=== PATIENT | female | born 1935 | race Caucasian/White ===

== ENCOUNTER → 2017-03-11 | Outpatient (CLI) | payer MEDICARE, BC ==
[2015-04-04 13:15] VITALS: BP 126/69
[~2017-03-11] MED LIST: ACETAMINOPHEN325 M1 PO; ANTIBIOTIC O500 U/GM TP; ATENOLOL; BACTRIM DS TAB1 EACH PO; CETAPHIL COMPO480 ML TOP; CIPRO 500MG TA500 MG PO; DELSYM30 MG/5 M1 PO; ESCITALOPRAM10 MG PO; EXELON PAT4.6 MG/24 TD; EXELON13.3 MG/24 TD; EXELON9.5 MG/21 TD; FOSAMAX 70MG TA70 MG PO; GAVISCON500 MG PO; IBU400 MG PO; NAMENDA10 MG PO; NATURAL E400 IU PO; PEPCID 20MG TAB20 MG PO; PROZAC10 M2 PO; RITE AID ASPIRI81 M1 PO; TENORMIN25 MG PO; XANAX0.5 M1 PO; ZOFRAN ODT8 MG PO
== END ==
LOC: LAB 13:44
DX: R73.02 Impaired glucose tolerance (oral) (principal); I10 Essential (primary) hypertension; K90.89 Other intestinal malabsorption

== ENCOUNTER 2017-03-29 10:14 | Emergency (ER) | payer MEDICARE, BC ==
[~2017-03-29 10:14] MED LIST changes: -ACETAMINOPHEN325 M1 PO; -BACTRIM DS TAB1 EACH PO; -CETAPHIL COMPO480 ML TOP; -DELSYM30 MG/5 M1 PO; -ESCITALOPRAM10 MG PO; -EXELON13.3 MG/24 TD; -FOSAMAX 70MG TA70 MG PO; -IBU400 MG PO; -NATURAL E400 IU PO; -PROZAC10 M2 PO; -XANAX0.5 M1 PO
[2017-03-29] MEDS ORDERED: EXELON13.3 MG/24 TD (10:38)
[2017-03-29] MEDS ORDERED: PROZAC10 M2 PO (10:39)
[2017-03-29] MEDS ORDERED: FOSAMAX 70MG TA70 MG PO (10:39)
[2017-03-29] MEDS ORDERED: NATURAL E400 IU PO (10:40)
[2017-03-29] MEDS ORDERED: DELSYM30 MG/5 M1 PO (10:41)
[2017-03-29] MEDS ORDERED: XANAX0.5 M1 PO (10:41)
[2017-03-29] MEDS ORDERED: CETAPHIL COMPO480 ML TOP (10:42)
[2017-03-29] MEDS ORDERED: BACTRIM DS TAB1 EACH PO (12:21)
[2017-03-29 12:31] VITALS: BP 135/72
== END 2017-03-29 12:38 | disposition home or self-care (01) ==
LOC: ED 10:14
DX: N39.0 Urinary tract infection, site not specified (principal); R53.81 Other malaise; F03.90 Unspecified dementia, unspecified severity, without behavioral disturbance, psychotic disturbance, mood disturbance, and anxiety
CPT/HCPCS: A4353

== ENCOUNTER → 2017-05-16 | Outpatient (CLI) | payer MEDICARE, BC ==
[~2017-05-16] MED LIST changes: +ACETAMINOPHEN325 M1 PO; +BACTRIM DS TAB1 EACH PO; +CETAPHIL COMPO480 ML TOP; +DELSYM30 MG/5 M1 PO; +ESCITALOPRAM10 MG PO; +EXELON13.3 MG/24 TD; +FOSAMAX 70MG TA70 MG PO; +IBU400 MG PO; +NATURAL E400 IU PO; +PROZAC10 M2 PO; +XANAX0.5 M1 PO
== END ==
LOC: RAD 17:27
DX: M25.511 Pain in right shoulder (principal)

== ENCOUNTER 2017-06-23 14:00 | Emergency (ER) | payer MEDICARE, BC ==
[~2017-06-23] VITALS: Wt 61.4 kg
[~2017-06-23 14:00] MED LIST changes: -ACETAMINOPHEN325 M1 PO; -ESCITALOPRAM10 MG PO; -IBU400 MG PO
[2017-06-23 14:39] VITALS: BP 142/75
[2017-06-23] MEDS ORDERED: ESCITALOPRAM10 MG PO (14:56)
[2017-06-23] MEDS ORDERED: IBU400 MG PO (14:59)
[2017-06-23] MEDS ORDERED: ACETAMINOPHEN325 M1 PO (15:00)
== END 2017-06-23 14:40 | disposition home or self-care (01) ==
LOC: ED 14:00
DX: S81.811A Laceration without foreign body, right lower leg, initial encounter (principal); F03.90 Unspecified dementia, unspecified severity, without behavioral disturbance, psychotic disturbance, mood disturbance, and anxiety; I10 Essential (primary) hypertension; X58.XXXA Exposure to other specified factors, initial encounter; Z23 Encounter for immunization
CPT/HCPCS: 90715

== ENCOUNTER 2017-09-11 05:08 | Emergency (ER) | payer MEDICARE, BC ==
[~2017-09-11] VITALS: Ht 157.5 cm; Wt 62.0 kg
[~2017-09-11 05:08] MED LIST changes: +ACETAMINOPHEN325 M1 PO; +ESCITALOPRAM10 MG PO; +IBU400 MG PO
[2017-09-11] MEDS ORDERED: DOXYCYCLINE MO100 M1 PO (05:35)
[2017-09-11] MEDS ORDERED: VITAMIN D1000 IU PO (05:37)
[2017-09-11] MEDS ORDERED: METOPROLOL SUCC25 M1 PO (05:38)
[2017-09-11] MEDS ORDERED: BACTRIM DS TAB1 EACH PO (06:55)
[2017-09-11 07:08] VITALS: BP 132/62
== END 2017-09-11 07:00 | disposition home or self-care (01) ==
LOC: ED 05:08
DX: I10 Essential (primary) hypertension (principal); N39.0 Urinary tract infection, site not specified; R31.9 Hematuria, unspecified; F03.90 Unspecified dementia, unspecified severity, without behavioral disturbance, psychotic disturbance, mood disturbance, and anxiety; J40 Bronchitis, not specified as acute or chronic

== ENCOUNTER 2017-11-12 09:55 | Emergency (ER) | payer MEDICARE, BC ==
[~2017-11-12] VITALS: Ht 157.5 cm; Wt 62.0 kg
[~2017-11-12 09:55] MED LIST changes: +DOXYCYCLINE MO100 M1 PO; +METOPROLOL SUCC25 M1 PO; +VITAMIN D1000 IU PO
[2017-11-12] MEDS ORDERED: RIVASTIGMINE1 EAC2 TD (10:24)
[2017-11-12 10:50] LABS: EOS # 0.1 (0.04-0.40); EOS % 2.8 % (1.0-5.0); HEMATOCRIT 40.4 % (37.0-47.0); HEMOGLOBIN 12.8 g/dL (12.5-16.0); LYMPH# 1.3 (1.50-4.00); MEAN CELL VOLUME 96 fl (78-100); MEAN CORPUSCULAR HEMOGLOBIN 30 pg (27-31); MEAN CORPUSCULAR HGB CONC 32 g/dL (33-37); MEAN PLATELET VOLUME 10.2 fl (7.4-10.4); MONO # 0.3 (0.20-0.80); NEU # 1.9 (1.40-6.50); PLATELET COUNT 205 K/mm3 (130-400); RED BLOOD COUNT 4.22 M/mm3 (4.10-5.30); RED CELL DISTRIBUTION WIDTH 14.2 % (11.5-14.5); WHITE BLOOD COUNT 3.6 K/mm3 (4.8-10.8)
[2017-11-12 10:59] LABS: ALBUMIN 4.1 g/dL (3.5-5.0); BUN/CREATININE RATIO 19.4 (6.0-26.0); CALCIUM 9.8 mg/dL (8.4-10.2); POTASSIUM 3.8 mmol/L (3.6-5.0); TOTAL BILIRUBIN 1.3 mg/dL (0.2-1.3)
[2017-11-12 11:03] LABS: CKMB ISOENZYME 1.3 ng/mL (0.6-3.5)
[2017-11-12 11:13] LABS: TROPONIN-I < 0.03 ng/mL (0.00-0.06)
[2017-11-12] MEDS ORDERED: PEPCID 20MG TAB20 MG PO (11:24)
[2017-11-12 11:49] VITALS: BP 142/76
== END 2017-11-12 11:29 | disposition home or self-care (01) ==
LOC: ED 09:55
PROVIDERS: Physician Assistant
DX: K21.9 Gastro-esophageal reflux disease without esophagitis (principal); R07.9 Chest pain, unspecified; F03.90 Unspecified dementia, unspecified severity, without behavioral disturbance, psychotic disturbance, mood disturbance, and anxiety; F41.9 Anxiety disorder, unspecified; F32.9 Major depressive disorder, single episode, unspecified; M81.0 Age-related osteoporosis without current pathological fracture; Z88.8 Allergy status to other drugs, medicaments and biological substances

== ENCOUNTER 2018-05-08 11:30 | Emergency (ER) | payer MEDICARE, BC ==
[~2018-05-08 11:30] MED LIST changes: -ACETAMINOPHEN325 M1 PO; +MAPAP500 M2 PO; +RIVASTIGMINE1 EAC2 TD
[2018-05-08 13:34] LABS: EOS # 0.1 (0.04-0.40); EOS % 1.4 % (1.0-5.0); HEMATOCRIT 41.2 % (37.0-47.0); HEMOGLOBIN 12.9 g/dL (12.5-16.0); LYMPH# 1.5 (1.50-4.00); MEAN CELL VOLUME 96 fl (78-100); MEAN CORPUSCULAR HEMOGLOBIN 30 pg (27-31); MEAN CORPUSCULAR HGB CONC 31 g/dL (33-37); MEAN PLATELET VOLUME 10.8 fl (7.4-10.4); MONO # 0.3 (0.20-0.80); NEU # 3.1 (1.40-6.50); PLATELET COUNT 179 K/mm3 (130-400); RED BLOOD COUNT 4.29 M/mm3 (4.10-5.30); RED CELL DISTRIBUTION WIDTH 14.4 % (11.5-14.5)
[2018-05-08 13:45] LABS: ALBUMIN 4.3 g/dL (3.5-5.0); CALCIUM 9.5 mg/dL (8.4-10.2); TOTAL PROTEIN 7.6 g/dL (6.3-8.2)
[2018-05-08 13:46] LABS: D-DIMER 0.34 mg/L FEU (0.15-0.50)
[2018-05-08] MEDS ORDERED: GOOD NEIGHBOR P20 MG PO (14:24)
[2018-05-08 14:25] LABS: CKMB ISOENZYME 1.9 ng/mL (0.6-3.5)
[2018-05-08 14:29] LABS: TROPONIN-I < 0.03 ng/mL (0.00-0.06)
[2018-05-08] MEDS ORDERED: VITAMIN D1000 IU PO (14:30)
[2018-05-08] MEDS ORDERED: DELSYM30 MG/5 M1 PO (14:32)
[2018-05-08] MEDS ORDERED: ATIVAN0.5 MG PO (14:33)
[2018-05-08] MEDS ORDERED: ATARAX 10MG10 MG/TAB PO (14:45)
[2018-05-08 15:01] VITALS: BP 136/72
== END 2018-05-08 14:59 | disposition home or self-care (01) ==
LOC: ED 11:30
PROVIDERS: Physician Assistant
DX: R07.89 Other chest pain (principal); F03.90 Unspecified dementia, unspecified severity, without behavioral disturbance, psychotic disturbance, mood disturbance, and anxiety; F41.9 Anxiety disorder, unspecified; F32.9 Major depressive disorder, single episode, unspecified; Z79.899 Other long term (current) drug therapy

== ENCOUNTER → 2018-06-16 | Outpatient (CLI) | payer MEDICARE, BC ==
[~2018-06-16] MED LIST changes: +ATARAX 10MG10 MG/TAB PO; +ATIVAN0.5 MG PO; +GOOD NEIGHBOR P20 MG PO
== END ==
LOC: LAB 10:45
PROVIDERS: Internal Medicine
DX: K90.89 Other intestinal malabsorption (principal); R73.02 Impaired glucose tolerance (oral); I10 Essential (primary) hypertension

== ENCOUNTER 2019-05-30 12:10 | Emergency (ER) | payer MEDICARE, MEDICAID ==
[~2019-05-30] VITALS: Ht 167.6 cm; Wt 66.4 kg
[2019-05-30 13:13] LABS: EOS # 0.1 (0.04-0.40); EOS % 1.8 % (1.0-5.0); HEMATOCRIT 38.7 % (37.0-47.0); HEMOGLOBIN 11.6 g/dL (12.5-16.0); LYMPH# 1.3 (1.50-4.00); MEAN CELL VOLUME 99 fl (78-100); MEAN CORPUSCULAR HEMOGLOBIN 30 pg (27-31); MEAN CORPUSCULAR HGB CONC 30 g/dL (33-37); MEAN PLATELET VOLUME 9.5 fl (7.4-10.4); MONO # 0.5 (0.20-0.80); NEU # 4.3 (1.40-6.50); PLATELET COUNT 153 K/mm3 (130-400); RED CELL DISTRIBUTION WIDTH 14.6 % (11.5-14.5); WHITE BLOOD COUNT 6.2 K/mm3 (4.8-10.8)
[2019-05-30] MEDS ORDERED: TOPROL XL 25MG25 MG PO (13:13)
[2019-05-30] MEDS ORDERED: DEPAKOTE PO (13:13)
[2019-05-30] MEDS ORDERED: IMODIUM2 MG PO (13:14)
[2019-05-30] MEDS ORDERED: ELIQUIS5 MG PO ×2 (13:16→14:52)
[2019-05-30] MEDS ORDERED: BISCOLAX10 M1 RC (13:16)
[2019-05-30] MEDS ORDERED: GOOD NEIGH1200 MG/15 PO (13:17)
[2019-05-30 13:30] LABS: CALCIUM 9.8 mg/dL (8.3-10.5)
[2019-05-30 15:25] VITALS: BP 126/84
== END 2019-05-30 15:10 | disposition home or self-care (01) ==
LOC: ED 12:10
PROVIDERS: Family Medicine
DX: R22.42 Localized swelling, mass and lump, left lower limb (principal); F03.90 Unspecified dementia, unspecified severity, without behavioral disturbance, psychotic disturbance, mood disturbance, and anxiety; E89.0 Postprocedural hypothyroidism; Z79.01 Long term (current) use of anticoagulants; Z90.49 Acquired absence of other specified parts of digestive tract; Z90.710 Acquired absence of both cervix and uterus